=== PATIENT | male | born 1975 | race Asian ===

== ENCOUNTER 2017-01-16 23:31 | Emergency (ER) | payer BC ==
[2017-01-17 00:13] LABS: BASOPHIL % 0.4 % (0-2); PLATELET COUNT 343 x10^3mcL (130-400); RED CELL DISTRIBUTION WIDTH 12.5 % (11.5-14.5)
[2017-01-17 00:44] LABS: CALCIUM 8.8 mg/dL (8.5-10.1); CARBON DIOXIDE 23.6 mmol/L (21-32); CHLORIDE SERUM 100 mmol/L (98-107); CREATININE SERUM 0.8 mg/dL (0.7-1.3); GFR1 > 60 mL/min; GLUCOSE SERUM 143 mg/dL (74-106); POTASSIUM SERUM 3.7 mmol/L (3.5-5.1); SODIUM SERUM 135 mmol/L (136-145)
[2017-01-17 00:48] LABS: ALKALINE PHOSPHATASE 68 U/L (46-116); ALT/SGPT 26 U/L (16-63); AST/SGOT 15 U/L (15-37); BILIRUBIN TOTAL 0.6 mg/dL (0.20-1.00); LIPASE 993 IU/L (73-393); TOTAL PROTEIN, SERUM 7.1 g/dL (6.4-8.2)
[2017-01-17 02:36] VITALS: BP 133/74
== END 2017-01-17 02:36 | disposition home or self-care (01) ==
LOC: ED 23:31
PROVIDERS: Emergency Medicine
DX: K85.90 Acute pancreatitis without necrosis or infection, unspecified (principal)
CPT/HCPCS: J1885; J2270; J2405; J7030

== ENCOUNTER 2019-04-23 20:25 | Inpatient (IN) | payer BC ==
[~2019-04-23] VITALS: Ht 172.7 cm; Wt 82.7 kg
[2019-04-23 20:27] VITALS: Ht 172.7 cm; Wt 82.7 kg
--- NOTE | 2019-04-23 21:16 | NUR ---
2 UNSUCCESSFUL IV ATTEMPTS. GEO BUCKLEY AT BEDSIDE FOR IV ATTEMPT.
--- NOTE | 2019-04-23 21:30 | NUR ---
PT MEDICATED PER MD ORDERS. IV FLUIDS RUNNING AT ORDERED RATE. PT A&0X4, SPEAKING FULL CLEAR SENTENCES. PT BREATHING EVEN AND UNLABORED. CM AND [address] WILL CONTINUE TO MONITOR.
[2019-04-23 21:41] LABS: BASOPHIL % 0.2 % (0-2); PLATELET COUNT 336 x10^3mcL (130-400); RED CELL DISTRIBUTION WIDTH 13.4 % (11.5-14.5)
[2019-04-23 21:48] LABS: CARBON DIOXIDE 23.9 mmol/L (21-32); GFR1 > 60 mL/min
[2019-04-23 21:52] LABS: ALBUMIN 4.1 g/dL (3.4-5.0); ALKALINE PHOSPHATASE 72 U/L (46-116); AMYLASE 87 U/L (25-115); BILIRUBIN TOTAL 0.51 mg/dL (0.20-1.00); LIPASE 735 IU/L (73-393); MAGNESIUM 1.9 mg/dL (1.8-2.4)
[2019-04-23 22:11] LABS: CALCIUM 8.2 mg/dL (8.5-10.1); CHLORIDE SERUM 99 mmol/L (98-107); GLUCOSE SERUM 159 mg/dL (74-106); POTASSIUM SERUM 4.3 mmol/L (3.5-5.1); SODIUM SERUM 136 mmol/L (136-145); TOTAL PROTEIN, SERUM 7.5 g/dL (6.4-8.2)
[2019-04-23 22:31] LABS: ALT/SGPT 40 U/L (16-63); AST/SGOT 16 U/L (15-37)
--- NOTE | 2019-04-23 22:41 | NUR ---
PT TO CT VIA WHEELCHAIR IN NAD, BREATHING EVEN AND UNLABORED. PT A&0X4, SPEAKING FULL CLEAR SENTENCES.
[2019-04-23 22:48] LABS: microscopic required? NO
--- NOTE | 2019-04-23 22:58 | NUR ---
PT BACK FROM CT VIA WHEELCHAIR. PT A&0X4, SPEAKING FULL CLEAR SENTENCES, BREATHING EVEN AND UNLABORED. CM AND [address] WILL CONTINUE TO MONITOR.
--- NOTE | 2019-04-23 23:05 | NUR ---
PT MEDICATED PER MD ORDERS, IV FLUIDS RUNNING AT ORDERED RATE. PT IN POSITION OF COMFORT IN NAD. WILL CONTINUE TO MONITOR.
[2019-04-23 23:09] LABS: urine erythrocyte NEGATIVE (NEGATIVE)
[2019-04-23 23:09] LABS: CHOLESTEROL 211 mg/dL (<200); HDL CHOLESTEROL 21 mg/dL (40-60); TRIGLYCERIDES 1430 mg/dL (<150)
--- NOTE | 2019-04-24 00:15 | NUR ---
DR CANALES AT BEDSIDE DISCUSSING PLAN OF CARE WITH PT.
--- NOTE | 2019-04-24 01:48 | NUR ---
REPORT GIVEN TO RANDALL BUCKLEY.
--- NOTE | 2019-04-24 02:01 | NUR ---
PT TRANSFERED TO TELE AT THIS TIME VIA GURNEY. PT A&0X4, SPEAKING FULL CLEAR SENTENCES. BREATHING EVEN AND UNLABORED. PT VERBALIZED UNDERSTANDING OF PLAN OF CARE. PT ACCOMPANIED BY MYSELF RN AND JORGE PEREIRA RN AT BEDSIDE TO ASSUME CARE OF PT. IV INTACT, NO COMPLICATIONS.
--- NOTE | 2019-04-24 02:33 | NUR ---
RECIEVED PT FROM ED. PT IS IN VISIBLE DISTRESS. COMPLAINS OF ABD PAIN 9/10, SHARP, NON RADIATING. GAVE PRN PAIN MEDICATION PER EMAR. TELE #13, NSR. DENIES ANY CHEST PAIN OR PRESSURE. PULSES ARE PRESENT. NO EDEMA. LUNGS CLEAR. PT DENIES ANY N/V AT THIS TIME. PT HAS REGULAR BMS. DENIES ANY CONSTIPATION OR DIARRHEA. IV ON LAC INTACT AND PATENT. BED IS AT LOWEST SETTING. CALL LIGHT WITHIN REACH. WILL CONTINUE TO MONITOR.
[2019-04-24 03:17] VITALS: BP 131/83
[2019-04-24 05:36] VITALS: BP 120/75
--- NOTE | 2019-04-24 06:41 | NUR ---
PT IS RESTING IN BED. DENIES ANY PAIN OR DISTRESS AT THIS TIME. NO SIGN OF DISTRESS NOTED. NO ACUTE EVENT OCCURED AT NIGHT. IV INTACT. BED IS AT LOWEST SETTING. CALL LIGHT WITHIN REACH. WILL ENDORSE TO AM NURSE.
--- NOTE | 2019-04-24 07:09 | NUR ---
RECEIVED REPORT FROM JANIS RN, PT IN NO ACUTE DISTRESS
[2019-04-24 07:24] LABS: BASOPHIL % 0.1 % (0-2); PLATELET COUNT 277 x10^3mcL (130-400)
--- NOTE | 2019-04-24 07:30 | NUR ---
PT IN BED, IN NO ACUTE DISTRESS, VERBAL, ABLE TO MAKE NEEDS KNOWN, NPO, PERRLA, RESP EVEN, NO SOB/COUGH, RA, TELE, DENIED CP/PRESSURE/GATES, DENIED N/V/D, ABD FLAT AND NONTENDER TO TOUCH, AMBULATORY, CONTINENT, CAP REFILL < 3S, PALP PULSES, BS ACTIVE X 4, IV PATENT AND INFUSING WELL, ALL NEEDS ADDRESSED AT THIS TIME, SAFETY MONITOR, CONTINUE TO MONITOR
[2019-04-24 08:03] VITALS: BP 132/79
[2019-04-24 08:12] LABS: ALBUMIN 3.6 g/dL (3.4-5.0); ALKALINE PHOSPHATASE 60 U/L (46-116); ALT/SGPT 52 U/L (16-63); AST/SGOT 16 U/L (15-37); BILIRUBIN TOTAL 1.06 mg/dL (0.20-1.00); CARBON DIOXIDE 24.2 mmol/L (21-32); CHLORIDE SERUM 101 mmol/L (98-107); CREATININE SERUM 0.9 mg/dL (0.7-1.3); GFR1 > 60 mL/min; GLUCOSE SERUM 137 mg/dL (74-106); SODIUM SERUM 136 mmol/L (136-145); TOTAL PROTEIN, SERUM 6.9 g/dL (6.4-8.2)
--- NOTE | 2019-04-24 09:38 | NUR ---
AM MEDS GIVEN PER MD ORDER VIA EMAR, TAKEN WELL, NO ASE NOTED AT THIS TIME, SAFETY MONITOR, CONTINUE TO MONITOR
--- NOTE | 2019-04-24 10:38 | NUR ---
PT SEEN BY DR MOE, NEW ORDER OBTAINED, PT MADE AWARE, PT IN NO ACUTE DISTRESS, CONTINUE TO MONITOR
[2019-04-24 11:52] VITALS: BP 103/55
[2019-04-24 14:24] LABS: AMYLASE 504 U/L (25-115); LIPASE 2884 IU/L (73-393)
--- NOTE | 2019-04-24 14:40 | NUR ---
PT RESTING IN BED, EYE CLOSED, REPORTED NO PAIN/DISCOMFORT AT THIS TIME, CONTINUE TO MONITOR
--- NOTE | 2019-04-24 16:41 | NUR ---
PT RESTING IN BED, IN NO ACUTE DISTRESS, TEMP 100.8, TYMPANIC, TYLENOL 650MG X 1 TIME GIVEN PER PRN ORDER VIA EMAR, TAKEN WELL, NO ASE NOTED AT THIS TIME, COOLING METHOD APPLIED, TAKEN WELL, CONTINUE TO MONITOR
[2019-04-24 16:47] VITALS: BP 113/64
--- NOTE | 2019-04-24 17:35 | NUR ---
TEMP NOTED 100.0, CONTINUE TO APLPIED COLLING METHOD, PT REPROTED NO PAIN AT THIS TIME, IN NO ACUTE DISTRESS, FAMILY AT BEDSIDE, SAFETY MONITOR, CONTINUE TO MONITOR
--- NOTE | 2019-04-24 18:04 | NUR ---
PT RESTING IN BED, IN NO ACUTE DISTRESS, COOLING METHOD CONTINUE TO APPLIED, VERBAL, ABLE TO MAKE NEEDS KNOWN, RESP EVEN, NO SOB/COUGH, RA, DENIED CP/PRESSURE/GATES, DENIED N/V/D, TELE #13, NSR, ABD FLAT AND NONTENDER TO TOUCH, AMBULATORY, CONTINENT, ALL NEEDS ADDRESSED AT THIS TIME, AND CHARGE NURSE LORRIE GOT UPDATED W/ LAB RESULT AND CONDITION, SAFETY PROTOCOL FOLLOWED, WILL ENDORSE TO ONCOMING RN
--- NOTE | 2019-04-24 19:21 | NUR ---
RECIEVED PATIENT AT START OF SHIFT A/O X4. ON TELE 13, NSR 93. REPORTING 5/10 ABDOMINAL PAIN. PATIENT APPEARS HOT AND SWEATY. TEMP 99.8. PATIENT HAD FEVER EARLIER AND WAS GIVEN TYELENOL BY [facility]. PATIENT IS NOT ON ANTIBIOTICS, WBC COUNT 17.8. WILL NOTIFY NIGHT RESIDENT TO CONSIDER BLOOD CULTURE AND ANTIBIOTICS. ABDOMEN IS SOFT AND FLAT. BS ACTIVE. IV TO LAC INFUSING WITHOUT ERYTHEMA OR INFILTRATION. BED LOCKED AND IN LOWEST POSIITON. CALL LIGHT WITHIN REACH.
--- NOTE | 2019-04-24 19:40 | NUR ---
PLAN OF CARE DISCUSSED WITH DR. LARSON. NO NEW ORDERS. HE EXPLAINED THAT FEVER AND ELEVATED WBC ARE CAUSED FROM THE PANCREATITIS, AND NOT AN ACTIVE INFECTION SO ANTIBIOTICS ARENT NEEDED.
--- NOTE | 2019-04-24 19:50 | NUR ---
PATIENT GIVEN DILAUDID PER EMAR FOR REPORT OF 8/10 ABDOMINAL PAIN AT THIS TIME.
[2019-04-24 20:24] VITALS: BP 112/62
--- NOTE | 2019-04-25 01:03 | NUR ---
PATIENTS EYES ARE CLOSED, BREATHS EVEN. TELE 13 NSR 92 BPM. CALL LIGHT ANF BEDSIDE TABLE WITHIN REACH.
[2019-04-25 05:45] VITALS: BP 106/56
--- NOTE | 2019-04-25 06:24 | NUR ---
PATIENT STATES THAT HE CANT STAND BEING IN THE HOSPITAL ANY LONGER AND CANT STAND BEING POKED FOR LAB DRAW. HE ALSO STATES HE NEEDS TO GET TO WORK. PATIENT EDUCATED THAT LEAVING THE HOSPITAL WOULD BE AGAINST MEDICAL ADVICE THE DOCTOR HAS NOT CLEARED HIM FOR DISCHARGE. PATIENT STATED HE DOES NOT WANT TO WAIT TO TALK TO DR. MOE ABOUT HIS CARE. PATIENT UNDERSTANDS THAT HIS CONDITION WILL LIKELY DETERIORATE WITHOUT IV HYDRATION AND PAIN MANAGEMENT. PATIENT VERBALIZED THAT HE UNDERSTANDS AND STILL WOULD LIKE TO LEAVE. PATIENT SIGNED AMA FORM AND LEFT THE UNIT AT THIS TIME, ESCORTED BY [facility]PITAL[facility] AMBASSADOR TO THE EXIT. DR. MOE PAGED TO INFORM HIM OF PATIENT LEAVING AMA.
--- NOTE | 2019-04-25 06:24 | NUR ---
PATIENT IS UPSET THAT LAB TOOK 5 DIFFERENT POKES TO DRAW BLOOD AND SAID HE CANT TAKE STAYING IN THE HOSPITAL ANY LONGER. PATIENT EDUCATED THAT LEAVING THE HOSPITAL WOULD BE AGAINST MEDICAL ADVICE THE DOCTOR HAS NOT CLEARED HIM FOR DISCHARGE. PATIENT STATED HE DOES NOT WANT TO WAIT TO TALK TO DR. MOE ABOUT HIS CARE. PATIENT UNDERSTANDS THAT HIS CONDITION WILL LIKELY DETERIORATE WITHOUT IV HYDRATION AND PAIN MANAGEMENT. PATIENT VERBALIZED THAT HE UNDERSTANDS AND STILL WOULD LIKE TO LEAVE. PATIENT SIGNED AMA FORM AND LEFT THE UNIT AT THIS TIME, ESCORTED BY RAQUEL BAKER TO THE EXIT. DR. MOE PAGED TO INFORM HIM OF PATIENT LEAVING AMA.
[2019-04-25 06:42] LABS: ALBUMIN 3.2 g/dL (3.4-5.0); ALKALINE PHOSPHATASE 55 U/L (46-116); ALT/SGPT 40 U/L (16-63); AST/SGOT 16 U/L (15-37); BILIRUBIN DIRECT 0.27 mg/dL (0.0-0.2); BILIRUBIN TOTAL 1.26 mg/dL (0.20-1.00); CARBON DIOXIDE 25.4 mmol/L (21-32); CHLORIDE SERUM 103 mmol/L (98-107); CREATININE SERUM 0.9 mg/dL (0.7-1.3); GFR1 > 60 mL/min; GLUCOSE SERUM 116 mg/dL (74-106); POTASSIUM SERUM 4.6 mmol/L (3.5-5.1); SODIUM SERUM 138 mmol/L (136-145)
[2019-04-25 08:57] VITALS: BP 96/51
== END 2019-04-25 06:50 | disposition left against medical advice (07) | DRG 439 ==
LOC: ED 20:25 → DU 04-24 01:01
PROVIDERS: Emergency Medicine; Internal Medicine Nephrology; ADMIT Internal Medicine Pulmonary Disease
DX: K85.20 Alcohol induced acute pancreatitis without necrosis or infection (principal); F10.188 Alcohol abuse with other alcohol-induced disorder; F17.210 Nicotine dependence, cigarettes, uncomplicated; R73.03 Prediabetes; D72.829 Elevated white blood cell count, unspecified; E78.1 Pure hyperglyceridemia; I10 Essential (primary) hypertension; Z91.19 Patient's noncompliance with other medical treatment and regimen
CPT/HCPCS: C9113; G0378; J1170; J2270; J2405; J2765; J3010; J7030; Q0162